=== PATIENT | female | born 1980 | race Caucasian/White ===

== ENCOUNTER 2019-08-28 22:33 | Emergency (ER) | payer OTHER ==
[~2019-08-28] VITALS: Ht 157.5 cm; Wt 81.6 kg
[2019-08-28 22:33] VITALS: BP 121/56
--- NOTE | 2019-08-28 22:33 | NUR ---
PT KYLIE BLS PREBOOK TO ER BED 08
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
[2019-08-28] MEDS ORDERED: KETOROLAC 60 MG/2 ML VIAL IM ONE (23:10)
[2019-08-28 23:25] VITALS: BP 121/56
--- NOTE | 2019-08-28 23:56 | NUR ---
PATIENT BIB [facility] [employer] [facility]. PATIENT EXAMINED BY DR. SLAUGHTER. PATIENT MEDICALLY CLEARED AND RELEASED IN CUSTODY IN STABLE CONDITION. ORIGINAL PRE-BOOK FORM GIVEN TO OFFICER CARLITO #[id number].
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
== END 2019-08-28 23:57 | disposition home or self-care (01) ==
LOC: MED 22:33
DX: S00.83XA Contusion of other part of head, initial encounter (principal); E07.9 Disorder of thyroid, unspecified; F17.200 Nicotine dependence, unspecified, uncomplicated; Z98.890 Other specified postprocedural states; Z88.0 Allergy status to penicillin; Z88.5 Allergy status to narcotic agent; Z02.89 Encounter for other administrative examinations; W18.30XA Fall on same level, unspecified, initial encounter; Y93.89 Activity, other specified; Y92.89 Other specified places as the place of occurrence of the external cause; Y99.8 Other external cause status
CPT/HCPCS: 99283; J1885

== ENCOUNTER 2019-08-29 09:43 | Emergency (ER) | payer OTHER ==
[~2019-08-29] VITALS: Ht 165.1 cm; Wt 77.6 kg
[2019-08-29 09:45] VITALS: BP 117/76
[2019-08-29] MEDS ORDERED: levETIRAcetam 500 MG TAB PO ONE (09:55)
--- NOTE | 2019-08-29 10:00 | NUR ---
PT BIB [facility] FOR PRE BOOK. PT PMH; SEIZURE AND HYPOTHYROIDSM, REQUEST FOR 1 DOSE OF KEPRA AND LEVOTHYROXINE. PT AAO X4, GCS 15, AMBULATORY WITH STDEAY GAIT. RESPIATIONS EVEN AND UNLABORED. SKIN WARM/PINK/DRY, +PMSC. NOTED BRUISE TO FORHEAD. VSS, NO ACUTE DISTRESS AT THIS TIME. WILL CONTINUE TO MONITOR
[2019-08-29] MEDS ORDERED: IBUPROFEN 600 MG TAB PO ONE (10:05)
--- NOTE | 2019-08-29 10:31 | NUR ---
PATIENT [facility]. PATIENT EXAMINED BY DR. CRUZ. PATIENT MEDICALLY CLEARED AND RELEASED IN CUSTODY IN STABLE CONDITION. ORIGINAL PRE-BOOK FORM GIVEN TO OFFICER BEATA.
--- NOTE | 2019-08-29 10:33 | NUR ---
Patient discharged with v/s stable. Written and verbal after care instructions given and explained. Patient alert, oriented and verbalized understanding of instructions. Ambulatory with steady gait. All questions addressed prior to discharge. ID band removed. Patient advised to follow up with PMD. Rx of SYNTHROID 0.175, KEPRA 500 MG given. Patient educated on indication of medication including possible reaction and side effects. Opportunity to ask questions provided and answered.
[2019-08-29 10:34] VITALS: BP 117/76
[2019-08-30] MEDS ORDERED: LEVOTHYROXINE 0.1 MG TAB PO SCH (06:30)
[2019-08-30] MEDS ORDERED: LEVOTHYROXINE 0.075 MG TAB PO SCH (06:30)
== END 2019-08-29 10:33 ==
LOC: MED 09:43
DX: R56.9 Unspecified convulsions (principal); E07.9 Disorder of thyroid, unspecified; Z02.89 Encounter for other administrative examinations; Z88.0 Allergy status to penicillin; Z88.5 Allergy status to narcotic agent
CPT/HCPCS: 99284